=== PATIENT | female | born 2000 | race Caucasian/White ===

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

== ENCOUNTER 2019-05-25 19:22 | Emergency (ER) | payer MEDICAID, OTHER ==
[2019-05-25 19:49] VITALS: BP 102/60; PULSE 94
--- NOTE | 2019-05-25 20:09 | EDM.PDOC ---
ED HPI GENERAL MEDICAL PROBLEM - General Chief Complaint: General Stated Complaint: PREGANCY TEST Time Seen by Provider: 05/25/19 19:45 Source of Information: Reports: Patient, RN History Limitations: Reports: No Limitations - History of Present Illness INITIAL COMMENTS - FREE TEXT/NARRATIVE: ED with request for test. Has had two at home that were negative. LMP 04/08. States feeling tired and having cravings. 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 ED EXAM, GENERAL - Physical Exam Exam: See Below Exam Limited By: No Limitations General Appearance: Alert, No Apparent Distress Eye Exam: Bilateral Eye: EOMI Ears: Normal External Exam, Hearing Grossly Normal Nose: Normal Inspection Throat/Mouth: Normal Voice Head: Atraumatic, Normocephalic Neck: Full Range of Motion Respiratory/Chest: No Respiratory Distress Extremities: Normal Range of Motion Psychiatric: Normal Affect, Normal Mood Skin Exam: Warm, Dry, Intact, Normal Color Course - Vital Signs Last Recorded V/S: Last Vital Signs Temp 97.2 F 05/25/19 19:30 Pulse 94 05/25/19 19:30 Resp 16 05/25/19 19:30 BP 102/60 05/25/19 19:30 Pulse Ox 99 05/25/19 19:30 - Orders/Labs/Meds Labs: Laboratory Tests 05/25/19 Range/Units 19:37 Urine HCG, Qual Negative Departure - Departure Time of Disposition: 20:07 Disposition: Home, Self-Care 01 Condition: Good Clinical Impression: Anxiety about health, Negative test - Discharge Information *PRESCRIPTION DRUG MONITORING PROGRAM REVIEWED*: No *COPY OF PRESCRIPTION DRUG MONITORING REPORT IN PATIENT KIRTI: Not Applicable Instructions: Test Information Forms: ED Department Discharge Additional Instructions: Follow up in clinic Sepsis Event Note - Evaluation Sepsis Screening Result: No Definite Risk - Focused Exam Vital Signs: Vital Signs Temp Pulse Resp BP Pulse Ox 05/25/19 19:30 97.2 F 94 16 102/60 99 Date Exam was Performed: 05/26/19 Time Exam was Performed: 02:32
== END 2019-05-25 20:14 | disposition home or self-care (01) ==
LOC: DL.ED 19:22
DX: Z32.02 Encounter for pregnancy test, result negative (principal); F41.8 Other specified anxiety disorders; Z91.010 Allergy to peanuts
CPT/HCPCS: 81025; 99283

== ENCOUNTER 2019-07-04 16:44 | Emergency (ER) | payer OTHER ==
[2019-07-04 17:08] VITALS: BP 110/64; PULSE 89
--- NOTE | 2019-07-04 19:10 | EDM.PDOC ---
ED HPI GENERAL MEDICAL PROBLEM - General Source of Information: Reports: Patient History Limitations: Reports: No Limitations <IvanJagdish - Last Filed: 07/04/19 19:04> <Juana Gonzalez - Last Filed: 07/04/19 20:27> - General Chief Complaint: Head Injury Stated Complaint: HIT IN HEAD WITH A GLASS BOWL Time Seen by Provider: 07/04/19 19:04 - History of Present Illness INITIAL COMMENTS - FREE TEXT/NARRATIVE: got hit on head by heavy glass bowel, denies LOC, but was dazed at first, then started feeling nauseous dizzy not feeling like herself headache and vision blurry on-off. denies falling over but feels unsteady on-off. 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 REEL WORKER History: co pain to left pelvis and down left leg Psychiatric History: Reports: ADHD, Antisocial Behaviors, Emotional Problems, Mood Swings, Psych Hospitalization(s), Psychosis, Schizophrenia <IvanJagdish - Last Filed: 07/04/19 19:04> Social & Family History - Family History Family Medical History: Noncontributory - Tobacco Use Smoking Status *Q: Never Smoker Second Hand Smoke Exposure: No - Caffeine Use Caffeine Use: Reports: Coffee, Soda - Recreational Drug Use Recreational Drug Use: No - Living Situation & Occupation Living situation: Reports: Other Occupation: Student <IvanJagdish - Last Filed: 07/04/19 19:04> ED ROS GENERAL - Review of Systems Review Of Systems: Comprehensive ROS is negative, except as noted in HPI. <IvanJagdish - Last Filed: 07/04/19 19:04> ED EXAM, HEAD INJURY - Physical Exam Exam: See Below Exam Limited By: No Limitations General Appearance: Alert, WD/WN, Mild Distress, Other (discomfort) Head: Other (right forehead swollen). No: Wolff's Sign, Raccoon Eyes Eyes: Bilateral Eye: PERRL (pupils ER @ 4mm) Ears: Hearing Grossly Normal Throat/Mouth: Normal Voice, No Airway Compromise Neck: Non-Tender, Full Range of Motion Respiratory: No Respiratory Distress Cardiovascular: Regular Rate, Rhythm GI/Abdominal Exam: Soft, Non-Tender Neurologic: No Motor/Sensory Deficits, Alert, Normal Mood/Affect, Oriented x 3 Skin: Normal Color, Warm/Dry - Abbie Coma Score Best Eye Response ([place]bbie): (4) Open Spontaneously Best Verbal Response ([place]): (5) Oriented Best Motor Response ([place]): (6) Obeys Commands Abbie Total: 15 <Jagdish Love - Last Filed: 07/04/19 19:04> Course <Jadgish Love - Last Filed: 07/04/19 19:04> <Juana Gonzalez - Last Filed: 07/04/19 20:27> - Vital Signs Last Recorded V/S: Last Vital Signs Temp 98.0 F 07/04/19 17:02 Pulse 89 07/04/19 17:02 Resp 18 07/04/19 17:02 BP 110/64 07/04/19 17:02 Pulse Ox 99 07/04/19 17:02 - Orders/Labs/Meds Labs: Laboratory Tests 07/04/19 Range/Units 19:10 HCG, Qual Negative - Radiology Interpretation Free Text/Narrative:: Head CT wo contrast: FINDINGS: Brain: No evidence for acute transcortical infarct. No mass effect or midline shift. No extra-axial collection. No acute intracranial hemorrhage. Basal cisterns are patent. Ventricles: Absence of the septum pellucidum. Mild dilatation of the lateral ventricles without evidence of acute hydrocephalus. Bones/joints: Unremarkable. No acute fracture. Sinuses: Mucosal thickening involving the left maxillary sinus. Mastoid air cells: Visualized mastoid air cells are well aerated. Soft tissues: Unremarkable. IMPRESSION: No acute intracranial hemorrhage or mass effect. Thank you for allowing us to participate in the care of your patient. Dictated and Authenticated by: Steve Arreguin MD 07/04/2019 8:24 PM Central Time ([place] & [place]) See rad report (Juana Gonzalez) Departure <Jagdish Love - Last Filed: 07/04/19 19:04> - Departure Time of Disposition: 20:26 Condition: Fair - Discharge Information *PRESCRIPTION DRUG MONITORING PROGRAM REVIEWED*: No *COPY OF PRESCRIPTION DRUG MONITORING REPORT IN PATIENT KIRTI: No <Juana Gonzalez - Last Filed: 07/04/19 20:27> - Departure Disposition: Home, Self-Care 01 Clinical Impression: Concussion injury of brain - Discharge Information Instructions: Head Injury, Adult, [id number], Concussion, Adult, [id number] , Post-Concussion Syndrome, [id number] Forms: ED Department Discharge Additional Instructions: Rest in quiet, dark room Decrease stimulus such as TV, looking at screens such as phone, ipad, etc. May use Tylenol and/or Ibuprofen as directed for pain Follow up with your primary care provider next week if symptoms are ongoing Sepsis Event Note - Evaluation Sepsis Screening Result: No Definite Risk - Focused Exam Date Exam was Performed: 07/04/19 Time Exam was Performed: 19:04 <Jagdish Love - Last Filed: 07/04/19 19:04> - Focused Exam Date Exam was Performed: 07/04/19 Time Exam was Performed: 20:25 <Juana Gonzalez - Last Filed: 07/04/19 20:27> - Focused Exam Vital Signs: Vital Signs Temp Pulse Resp BP Pulse Ox 07/04/19 17:02 98.0 F 89 18 110/64 99
== END 2019-07-04 20:33 | disposition home or self-care (01) ==
LOC: DL.ED 16:44
DX: S06.0X9A Concussion with loss of consciousness of unspecified duration, initial encounter (principal); Z91.010 Allergy to peanuts; W22.8XXA Striking against or struck by other objects, initial encounter
CPT/HCPCS: 36415; 70450; 84703; 99284-25

== ENCOUNTER 2020-01-11 23:31 | Emergency (ER) | payer OTHER ==
[2020-01-11 23:38] VITALS: BP 107/79; PULSE 93
--- NOTE | 2020-01-11 23:52 | EDM.PDOC ---
ED HPI GENERAL MEDICAL PROBLEM - General Chief Complaint: Abdominal Pain Stated Complaint: ABD PAIN Time Seen by Provider: 01/11/20 23:51 Source of Information: Reports: Patient, RN History Limitations: Reports: No Limitations - History of Present Illness INITIAL COMMENTS - FREE TEXT/NARRATIVE: ED with c/o pelvic pain x 1- 1 1/2 months almost constant at times worsens with sharp stabbing sensations states since arrival pain now gone. Thinks part of pain related to stress. Just thought she should be checked out tonight. States has tried to get in to clinic but has not scheduled appointment. Does not take anything for pain. Denies nausea or vomiting. No change in bowels. Notes some stomach upset after eating Subwa today but that also resolved. 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 ED EXAM, GI/ABD - Physical Exam Exam: See Below Exam Limited By: No Limitations General Appearance: Alert, No Apparent Distress Eyes: Bilateral: EOMI Ears: Normal External Exam, Normal TMs Nose: Nasal Deformity Throat/Mouth: Normal Inspection Head: Atraumatic, Normocephalic Neck: Normal Inspection Respiratory/Chest: No Respiratory Distress, Lungs Clear, Normal Breath Sounds Cardiovascular: Normal Peripheral Pulses, Regular Rate, Rhythm GI/Abdominal Exam: Normal Bowel Sounds, Soft, Non-Tender Extremities: Normal Range of Motion Neurological: Alert, Oriented Psychiatric: Normal Mood Skin Exam: Warm, Dry, Intact, Normal Color Course - Vital Signs Last Recorded V/S: Last Vital Signs Temp 98.2 F 01/11/20 23:37 Pulse 93 01/11/20 23:37 Resp 18 01/11/20 23:37 BP 107/79 01/11/20 23:37 Pulse Ox 99 01/11/20 23:37 - Orders/Labs/Meds Orders: Active Orders 24 hr Category Date Time Status CULTURE URINE [RM] Stat Lab 01/11/20 23:50 Received Nitrofurantoin [place]/Macrocryst [Macrobid] Med 01/12/20 00:24 Once 100 mg PO ONETIME ONE Labs: Laboratory Tests 01/11/20 01/11/20 01/11/20 Range/Units 23:45 23:45 23:50 WBC 9.9 (5.0-10.0) 10^3/uL RBC 4.10 L (4.2-5.4) 10^6/uL Hgb 12.7 D (12.0-16.0) g/dL Hct 37.8 (37.0-47.0) % MCV 92.2 (80-100) fL MCH 31.0 (27.0-34.0) pg MCHC 33.6 (33.0-35.0) g/dL Plt Count 299 (150-450) 10^3/uL Neut % (Auto) 49.4 (42.2-75.2) % Lymph % (Auto) 38.9 (20.5-50.1) % [place] % (Auto) 9.1 H (2-8) % Eos % (Auto) 2.1 (1.0-3.0) % Baso % (Auto) 0.5 (0.0-1.0) % Sodium 139 (136-145) mmol/L Potassium 3.6 (3.5-5.1) mmol/L Chloride 103 (98-107) mmol/L Carbon Dioxide 27 (21-32) mmol/L Anion Gap 12.6 (7-13) mEq/L BUN 15 (7-18) mg/dL Creatinine 0.66 (0.55-1.02) mg/dL Est Cr Clr Drug Dosing 127.28 mL/min Estimated GFR (MDRD) > 60 BUN/Creatinine Ratio 22.7 (No establ ref range) Glucose 89 (74-99) mg/dL Calcium 8.8 (8.5-10.1) mg/dL Total Bilirubin 0.2 (0.2-1.0) mg/dL AST 16 (15-37) U/L ALT 20 (14-59) U/L Alkaline Phosphatase 61 (46-116) U/L Total Protein 6.8 (6.4-8.2) g/dL Albumin 3.6 (3.4-5.0) g/dL Globulin 3.2 Albumin/Globulin Ratio 1.1 Urine Color Yellow (YELLOW) Urine Appearance Slightly cloudy (CLEAR) Urine pH 6.0 (5.0-9.0) Ur Specific [place] 1.025 (1.005-1.030) Urine Protein Negative (NEGATIVE) Urine Glucose (UA) Negative (NEGATIVE) Urine Ketones Negative (NEGATIVE) Urine Occult Blood Trace-intact H (NEGATIVE) Urine Nitrite Negative (NEGATIVE) Urine Bilirubin Negative (NEGATIVE) Urine Urobilinogen 0.2 (0.2-1.0) mg/dL Ur Leukocyte Esterase Small H (NEGATIVE) Urine RBC 0-5 /HPF Urine WBC 10-20 H (0-5/HPF) /HPF Ur Epithelial Cells Few (NOT SEEN) /HPF Amorphous Sediment Few (NOT SEEN) /HPF Urine Bacteria Rare (0-FEW/HPF) /HPF Urine Mucus Few H (NOT SEEN) /LPF Urine HCG, Qual 01/11/20 Range/Units 23:50 WBC (5.0-10.0) 10^3/uL RBC (4.2-5.4) 10^6/uL Hgb (12.0-16.0) g/dL Hct (37.0-47.0) % MCV (80-100) fL MCH (27.0-34.0) pg MCHC (33.0-35.0) g/dL Plt Count (150-450) 10^3/uL Neut % (Auto) (42.2-75.2) % Lymph % (Auto) (20.5-50.1) % [place] % (Auto) (2-8) % Eos % (Auto) (1.0-3.0) % Baso % (Auto) (0.0-1.0) % Sodium (136-145) mmol/L Potassium (3.5-5.1) mmol/L Chloride (98-107) mmol/L Carbon Dioxide (21-32) mmol/L Anion Gap (7-13) mEq/L BUN (7-18) mg/dL Creatinine (0.55-1.02) mg/dL Est Cr Clr Drug Dosing mL/min Estimated GFR (MDRD) BUN/Creatinine Ratio (No establ ref range) Glucose (74-99) mg/dL Calcium (8.5-10.1) mg/dL Total Bilirubin (0.2-1.0) mg/dL AST (15-37) U/L ALT (14-59) U/L Alkaline Phosphatase (46-116) U/L Total Protein (6.4-8.2) g/dL Albumin (3.4-5.0) g/dL Globulin Albumin/Globulin Ratio Urine Color (YELLOW) Urine Appearance (CLEAR) Urine pH (5.0-9.0) Ur Specific [place] (1.005-1.030) Urine Protein (NEGATIVE) Urine Glucose (UA) (NEGATIVE) Urine Ketones (NEGATIVE) Urine Occult Blood (NEGATIVE) Urine Nitrite (NEGATIVE) Urine Bilirubin (NEGATIVE) Urine Urobilinogen (0.2-1.0) mg/dL Ur Leukocyte Esterase (NEGATIVE) Urine RBC /HPF Urine WBC (0-5/HPF) /HPF Ur Epithelial Cells (NOT SEEN) /HPF Amorphous Sediment (NOT SEEN) /HPF Urine Bacteria (0-FEW/HPF) /HPF Urine Mucus (NOT SEEN) /LPF Urine HCG, Qual Negative Departure - Departure Time of Disposition: 00:24 Disposition: Home, Self-Care 01 Condition: Good Clinical Impression: UTI (urinary tract infection) Qualifiers: Urinary tract infection type: acute cystitis Hematuria presence: without hematuria Qualified Code(s): N30.00 - Acute cystitis without hematuria - Discharge Information *PRESCRIPTION DRUG MONITORING PROGRAM REVIEWED*: No *COPY OF PRESCRIPTION DRUG MONITORING REPORT IN PATIENT KIRTI: No Instructions: Urinary Tract Infection, Adult, [id number] Forms: ED Department Discharge Additional Instructions: Macrobid 100mg one twice daily for one wee increase fluids increase frequency of voiding clinic follow up and schedule pelvic ultrasound Sepsis Event Note (ED) - Evaluation Sepsis Screening Result: No Definite Risk - Focused Exam Vital Signs: Vital Signs Temp Pulse Resp BP Pulse Ox 01/11/20 23:37 98.2 F 93 18 107/79 99 - My Orders Last 24 Hours: My Active Orders 01/11/20 23:50 CULTURE URINE [RM] Stat 01/12/20 00:24 Nitrofurantoin [place]/Macrocryst [Macrobid] 100 mg PO ONETIME ONE - Assessment/Plan Last 24 Hours: My Active Orders 01/11/20 23:50 CULTURE URINE [RM] Stat 01/12/20 00:24 Nitrofurantoin [place]/Macrocryst [Macrobid] 100 mg PO ONETIME ONE
[2020-01-12 00:14] LABS: ANION GAP 12.6 mEq/L (7-13); CHLORIDE,CL 103 mmol/L (98-107); SODIUM,NA 139 mmol/L (136-145)
[2020-01-12] MEDS ORDERED: Nitrofurantoin Monohydrate/Macrocrystalline 100 MG Cap PO ONE (00:24)
== END 2020-01-12 00:30 | disposition home or self-care (01) ==
LOC: DL.ED 23:31
DX: N30.00 Acute cystitis without hematuria (principal); Z91.010 Allergy to peanuts
CPT/HCPCS: 36415; 80053; 81001; 81025; 85025; 87086; 99284; A9270-GY

== ENCOUNTER 2020-01-23 19:53 | Emergency (ER) | payer OTHER ==
--- NOTE | 2020-01-23 20:11 | EDM.PDOC ---
ED HPI GENERAL MEDICAL PROBLEM - General Chief Complaint: Genitourinary Problem Stated Complaint: SEVERE PELVIC PAINS Time Seen by Provider: 01/23/20 20:07 Source of Information: Reports: Patient History Limitations: Reports: No Limitations - History of Present Illness INITIAL COMMENTS - FREE TEXT/NARRATIVE: states been having this abd pain past 2 months now. seen many clinics and docs but never any better. nobody has scanned her for it. 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 ED EXAM, GI/ABD - Physical Exam Exam: See Below Exam Limited By: No Limitations General Appearance: Alert, WD/WN, Mild Distress, Other (discomfort). No: Active Emesis Ears: Hearing Grossly Normal Throat/Mouth: Normal Voice, No Airway Compromise Head: Atraumatic Neck: Non-Tender, Full Range of Motion Respiratory/Chest: No Respiratory Distress Cardiovascular: Regular Rate, Rhythm GI/Abdominal Exam: Tender. No: Distended, Guarding, Rigid, Rebound (Female) Exam: Deferred Rectal (Female) Exam: Deferred Neurological: Alert, Oriented, Normal Cognition, Normal Gait, No Motor/Sensory Deficits Psychiatric: Flat Affect Skin Exam: Warm, Dry, Normal Color Lymphatic: No Adenopathy Course - Vital Signs Last Recorded V/S: Last Vital Signs Temp 36.4 C 01/23/20 20:02 Pulse 89 01/23/20 20:02 Resp 18 01/23/20 20:02 BP 118/78 01/23/20 20:02 Pulse Ox 100 01/23/20 20:02 - Orders/Labs/Meds Orders: Active Orders 24 hr Category Date Time Status CHLAMYDIA AND GONORRHEA BY TMA Stat Lab 01/23/20 20:10 Received CULTURE URINE [RM] Stat Lab 01/23/20 20:10 Received Labs: Laboratory Tests 01/23/20 01/23/20 01/23/20 Range/Units 20:08 20:08 20:10 WBC 9.9 (5.0-10.0) 10^3/uL RBC 3.89 L (4.2-5.4) 10^6/uL Hgb 12.1 (12.0-16.0) g/dL Hct 36.2 L (37.0-47.0) % MCV 93.1 (80-100) fL MCH 31.1 (27.0-34.0) pg MCHC 33.4 (33.0-35.0) g/dL Plt Count 283 (150-450) 10^3/uL Neut % (Auto) 49.7 (42.2-75.2) % Lymph % (Auto) 39.1 (20.5-50.1) % [place] % (Auto) 8.1 H (2-8) % Eos % (Auto) 2.7 (1.0-3.0) % Baso % (Auto) 0.4 (0.0-1.0) % Sodium 139 (136-145) mmol/L Potassium 3.6 (3.5-5.1) mmol/L Chloride 104 (98-107) mmol/L Carbon Dioxide 25 (21-32) mmol/L Anion Gap 13.6 H (7-13) mEq/L BUN 20 H (7-18) mg/dL Creatinine 0.78 (0.55-1.02) mg/dL Est Cr Clr Drug Dosing 105.61 mL/min Estimated GFR (MDRD) > 60 BUN/Creatinine Ratio 25.6 (No establ ref range) Glucose 82 (74-99) mg/dL Calcium 8.4 L (8.5-10.1) mg/dL Total Bilirubin 0.2 (0.2-1.0) mg/dL AST 15 (15-37) U/L ALT 23 (14-59) U/L Alkaline Phosphatase 61 (46-116) U/L Total Protein 7.0 (6.4-8.2) g/dL Albumin 3.6 (3.4-5.0) g/dL Globulin 3.4 Albumin/Globulin Ratio 1.1 Urine Color Yellow (YELLOW) Urine Appearance Slightly cloudy (CLEAR) Urine pH 7.0 (5.0-9.0) Ur Specific [place] 1.025 (1.005-1.030) Urine Protein Negative (NEGATIVE) Urine Glucose (UA) Negative (NEGATIVE) Urine Ketones Negative (NEGATIVE) Urine Occult Blood Negative (NEGATIVE) Urine Nitrite Negative (NEGATIVE) Urine Bilirubin Negative (NEGATIVE) Urine Urobilinogen 0.2 (0.2-1.0) mg/dL Ur Leukocyte Esterase Trace H (NEGATIVE) Urine RBC Not seen /HPF Urine WBC 5-10 H (0-5/HPF) /HPF Ur Epithelial Cells Few (NOT SEEN) /HPF Amorphous Sediment Few (NOT SEEN) /HPF Urine Bacteria Few (0-FEW/HPF) /HPF Urine Mucus Rare (NOT SEEN) /LPF Urine HCG, Qual Urine Opiates Screen (NEGATIVE) Ur Oxycodone Screen (NEGATIVE) Urine Methadone Screen (NEGATIVE) Ur Barbiturates Screen (NEGATIVE) U Tricyclic Antidepress (NEGATIVE) Ur Phencyclidine Scrn (NEGATIVE) Ur Amphetamine Screen (NEGATIVE) U Methamphetamines Scrn (NEGATIVE) Urine MDMA Screen (NEGATIVE) U Benzodiazepines Scrn (NEGATIVE) Urine Cocaine Screen (NEGATIVE) U Marijuana (THC) Screen (NEGATIVE) 01/23/20 01/23/20 Range/Units 20:10 20:10 WBC (5.0-10.0) 10^3/uL RBC (4.2-5.4) 10^6/uL Hgb (12.0-16.0) g/dL Hct (37.0-47.0) % MCV (80-100) fL MCH (27.0-34.0) pg MCHC (33.0-35.0) g/dL Plt Count (150-450) 10^3/uL Neut % (Auto) (42.2-75.2) % Lymph % (Auto) (20.5-50.1) % [place] % (Auto) (2-8) % Eos % (Auto) (1.0-3.0) % Baso % (Auto) (0.0-1.0) % Sodium (136-145) mmol/L Potassium (3.5-5.1) mmol/L Chloride (98-107) mmol/L Carbon Dioxide (21-32) mmol/L Anion Gap (7-13) mEq/L BUN (7-18) mg/dL Creatinine (0.55-1.02) mg/dL Est Cr Clr Drug Dosing mL/min Estimated GFR (MDRD) BUN/Creatinine Ratio (No establ ref range) Glucose (74-99) mg/dL Calcium (8.5-10.1) mg/dL Total Bilirubin (0.2-1.0) mg/dL AST (15-37) U/L ALT (14-59) U/L Alkaline Phosphatase (46-116) U/L Total Protein (6.4-8.2) g/dL Albumin (3.4-5.0) g/dL Globulin Albumin/Globulin Ratio Urine Color (YELLOW) Urine Appearance (CLEAR) Urine pH (5.0-9.0) Ur Specific [place] (1.005-1.030) Urine Protein (NEGATIVE) Urine Glucose (UA) (NEGATIVE) Urine Ketones (NEGATIVE) Urine Occult Blood (NEGATIVE) Urine Nitrite (NEGATIVE) Urine Bilirubin (NEGATIVE) Urine Urobilinogen (0.2-1.0) mg/dL Ur Leukocyte Esterase (NEGATIVE) Urine RBC /HPF Urine WBC (0-5/HPF) /HPF Ur Epithelial Cells (NOT SEEN) /HPF Amorphous Sediment (NOT SEEN) /HPF Urine Bacteria (0-FEW/HPF) /HPF Urine Mucus (NOT SEEN) /LPF Urine HCG, Qual Negative Urine Opiates Screen Negative (NEGATIVE) Ur Oxycodone Screen Negative (NEGATIVE) Urine Methadone Screen Negative (NEGATIVE) Ur Barbiturates Screen Negative (NEGATIVE) U Tricyclic Antidepress Negative (NEGATIVE) Ur Phencyclidine Scrn Negative (NEGATIVE) Ur Amphetamine Screen Negative (NEGATIVE) U Methamphetamines Scrn Negative (NEGATIVE) Urine MDMA Screen Negative (NEGATIVE) U Benzodiazepines Scrn Negative (NEGATIVE) Urine Cocaine Screen Negative (NEGATIVE) U Marijuana (THC) Screen Negative (NEGATIVE) Meds: Medications Discontinued Medications Generic Name Dose Route Start Last Admin Trade Name Freq PRN Reason Stop Dose Admin Iopamidol 100 ml 01/23/20 20:44 01/23/20 20:49 Isovue-300 (61%) IVPUSH 01/23/20 20:45 100 ml ONETIME ONE Administration - Re-Assessments/Exams Free Text/Narrative Re-Assessment/Exam: 01/23/20 22:10 results discussed with pt who is feeling better now and wants to go home. Departure - Departure Time of Disposition: 22:10 Disposition: Home, Self-Care 01 Condition: Good Clinical Impression: Abdominal discomfort, generalized - Discharge Information Forms: ED Department Discharge Additional Instructions: 1) resst 2) follow up at clinic Sepsis Event Note (ED) - Evaluation Sepsis Screening Result: No Definite Risk - Focused Exam Vital Signs: Vital Signs Temp Pulse Resp BP Pulse Ox 01/23/20 20:02 36.4 C 89 18 118/78 100 - My Orders Last 24 Hours: My Active Orders 01/23/20 20:10 CHLAMYDIA AND GONORRHEA BY TMA Stat CULTURE URINE [RM] Stat - Assessment/Plan Last 24 Hours: My Active Orders 01/23/20 20:10 CHLAMYDIA AND GONORRHEA BY TMA Stat CULTURE URINE [RM] Stat
[2020-01-23] MEDS ORDERED: Iopamidol 612 MG/ML 100 ML Bottle IVPUSH ONE (20:44)
[2020-01-23 20:45] LABS: ANION GAP 13.6 mEq/L (7-13); CHLORIDE,CL 104 mmol/L (98-107); SODIUM,NA 139 mmol/L (136-145)
--- NOTE | 2020-01-23 21:43 | CT ---
PROCEDURE INFORMATION: Exam: CT Abdomen And Pelvis With Contrast Exam date and time: 01/23/2020 8:53 PM Age: 19 years old Clinical indication: Other: Low abd pain 2 months TECHNIQUE: Imaging protocol: Computed tomography of the abdomen and pelvis with intravenous contrast. Radiation optimization: All CT scans at this facility use at least one of these dose optimization techniques: automated exposure control; mA and/or kV adjustment per patient size (includes targeted exams where dose is matched to clinical indication); or iterative reconstruction. Contrast material: [id number]; Contrast volume: 75 ml; Contrast route: INTRAVENOUS (IV); COMPARISON: No relevant prior studies available. FINDINGS: Liver: Normal in architecture. No suspicious hepatic mass. Gallbladder and bile ducts: Gallbladder is contracted. No stones are seen. Pancreas: Normal parenchymal bulk and the gland is sharply marginated. No local inflammation and ductal dilatation. No organized fluid collection, mass, or calcification. Spleen: The spleen is normal in size. No splenic mass or abnormal fluid collection. Adrenals: There are no suspicious adrenal masses. Kidneys and ureters: Both kidneys are normal in parenchymal bulk. No hydronephrosis, stone, or solid mass. Stomach and bowel: No significant abnormalities of the stomach. There are no dilated or thickened small bowel loops. Gas and stool are seen in the colon to the rectum. No mass. Appendix: The appendix is seen. It is normal. Intraperitoneal space: No pneumoperitoneum, ascites, mass or stranding of fat. Vasculature: No aneurysm. Lymph nodes: No enlarged lymph nodes. Urinary bladder: Unremarkable as visualized. Reproductive: The uterus and ovaries are within normal limits. There are no adenexal masses. Bones/joints: Age appropriate. No acute fracture. No dislocation. There are no suspicious lytic or osteosclerotic lesions. Soft tissues: No suspicious soft tissue masses, soft tissue gas of significance, or hernia. IMPRESSION: No sign of acute intra-abdominal pathology.
[2020-01-23 22:11] VITALS: BP 125/79; PULSE 76
== END 2020-01-23 22:17 | disposition home or self-care (01) ==
LOC: DL.ED 19:53
DX: R10.84 Generalized abdominal pain (principal); F20.9 Schizophrenia, unspecified; Z91.010 Allergy to peanuts
CPT/HCPCS: 36415; 74177; 80053; 80305; 81001; 81025; 85025; 87086; 87491; 87591; 99284; Q9967; 99283

== ENCOUNTER 2020-06-18 15:31 | Emergency (ER) | payer OTHER ==
[2020-06-18 15:54] VITALS: BP 108/62; PULSE 84
[2020-06-18 16:33] LABS: AMPHETAMINES,URINE NEGATIVE (NEGATIVE); BARBITURATES,URINE NEGATIVE (NEGATIVE); BENZODIAZEPINE,URINE NEGATIVE (NEGATIVE); MDMA (ECSTASY), URINE NEGATIVE (NEGATIVE); METHADONE,URINE NEGATIVE (NEGATIVE); METHAMPHETAMINES,URINE NEGATIVE (NEGATIVE); OPIATES,URINE NEGATIVE (NEGATIVE); OXYCODONE,URINE NEGATIVE (NEGATIVE); PHENCYCLIDINE,URINE NEGATIVE (NEGATIVE); TCA,URINE NEGATIVE (NEGATIVE)
--- NOTE | 2020-06-18 17:00 | US ---
PROCEDURE INFORMATION: Exam: US , Limited Exam date and time: 06/18/2020 4:12 PM Age: 20 years old Clinical indication: Lmp or gestational age (in weeks): ? 4-5weeks; Antepartum complications; Bleeding; ; Additional info: Spotting ? 4-5 weeks TECHNIQUE: Imaging protocol: Real-time ultrasound of the maternal uterus with image documentation. Exam focused on the clinical indication. COMPARISON: No relevant prior studies available. FINDINGS: Gestation: Intrauterine gestational sac is appreciated. A pole is not seen. BIOMETRY: Mean sac diameter: Mean sac diameter is 0.66 cm (5 weeks 2 days). MATERNAL: Uterus: Uterus is anteverted and appears unremarkable. Right adnexa: The right ovary is normal and measures 2.9 cm x 2.4 cm x 1.7 cm. Normal right ovarian vascularity. Left adnexa: The left ovary is normal and measures 3.2 cm by 2.2 cm x 1.5 cm. There is a 1.5 cm cyst in the left ovary which most probably represents an involuting corpus luteum or involuting hemorrhagic cyst. No follow-up is recommended. Normal left ovarian vascularity. Intraperitoneal space: Trace free fluid in the cul-de-sac. IMPRESSION: Intrauterine gestational sac without a pole identified. Ultrasound dates are 5 weeks 2 days, not correlating with LMP (8 weeks 1 day). Differential diagnosis would include early or failed . Close follow-up with beta HCG and ultrasound is recommended.
--- NOTE | 2020-06-18 17:01 | US ---
PROCEDURE INFORMATION: Exam: US , Transvaginal Exam date and time: 06/18/2020 4:12 PM Age: 20 years old Clinical indication: Lmp or gestational age (in weeks): ? 4-5 weeks; Antepartum complications; Bleeding; ; Additional info: Spotting (believes 4-5 weeks into ) TECHNIQUE: Imaging protocol: Real-time transvaginal obstetrical ultrasound of the maternal pelvis and a first trimester with image documentation. Transvaginal imaging was used for better evaluation of the fetus, adnexa, and/or cervix. COMPARISON: No relevant prior studies available. FINDINGS: Gestation: Intrauterine gestational sac is appreciated. A pole is not seen. BIOMETRY: Mean sac diameter: Mean sac diameter is 0.66 cm (5 weeks 2 days). MATERNAL: Uterus: Uterus is anteverted and appears unremarkable. Right adnexa: The right ovary is normal and measures 2.9 cm x 2.4 cm x 1.7 cm. Normal right ovarian vascularity. Left adnexa: The left ovary is normal and measures 3.2 cm by 2.2 cm x 1.5 cm. There is a 1.5 cm cyst in the left ovary which most probably represents an involuting corpus luteum or involuting hemorrhagic cyst. No follow-up is recommended. Normal left ovarian vascularity. Intraperitoneal space: Trace free fluid in the cul-de-sac. IMPRESSION: Intrauterine gestational sac without a pole identified. Ultrasound dates are 5 weeks 2 days, not correlating with LMP (8 weeks 1 day). Differential diagnosis would include early or failed . Close follow-up with beta HCG and ultrasound is recommended.
--- NOTE | 2020-06-18 17:03 | EDM.PDOC ---
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 The patient reports she has taken numerous tests demonstrating that she was . The patient reports she started to notice some spotting last night and has used 2 pads today. Onset Date: 06/17/20 Duration: Constant Location: Reports: Other Quality: Reports: Other Severity: Mild Improves with: Reports: None Worsens with: Reports: None Context: Reports: Other Associated Symptoms: Reports: No Other Symptoms - Related Data Allergies Allergy/AdvReac Type Severity Reaction Status Date / Time peanut Allergy Anaphylactic Verified 06/18/20 15:54 Shock Past Medical History - Past Health History Medical/Surgical History: Denies Medical/Surgical History HEENT History: Reports: Hard of Hearing, Impaired Vision Cardiovascular History: Reports: Heart Murmur TAP OUT OPERATOR History: Reports: , Other (See Below) Other TAP OUT OPERATOR History: co pain to left pelvis and down left leg Psychiatric History: Reports: ADHD, Antisocial Behaviors, Bipolar, Emotional Problems, Mood Swings, Psych Hospitalization(s), Psychosis, Schizophrenia Social & Family History - Family History Family Medical History: No Pertinent Family History - Tobacco Use Tobacco Use Status *Q: Current Every Day Tobacco User Years of Tobacco use: 1 Packs/Tins Daily: 1 Used Tobacco, but Quit: Yes Month/Year Tobacco Last Used: 04/2019 - Caffeine Use Caffeine Use: Reports: None - Recreational Drug Use Recreational Drug Use: No - Living Situation & Occupation Living situation: Reports: Other Occupation: Student ED ROS GENERAL - Review of Systems Review Of Systems: Comprehensive ROS is negative, except as noted in HPI. ED EXAM - Physical Exam Exam: See Below Exam Limited By: No Limitations General Appearance: Alert, WD/WN, Anxious, Mild Distress Eye Exam: Bilateral Eye: EOMI, Normal Inspection, PERRL Ears: Normal External Exam, Normal Canal, Hearing Grossly Normal, Normal TMs Nose: Normal Inspection, Normal Mucosa, No Blood Throat/Mouth: Normal Inspection, Normal Lips, Normal Teeth, Normal Gums, Normal Oropharynx, Normal Voice, No Airway Compromise Head: Atraumatic, Normocephalic Neck: Normal Inspection, Supple, Non-Tender, Full Range of Motion Respiratory/Chest: No Respiratory Distress, Lungs Clear, Normal Breath Sounds, No Accessory Muscle Use, Chest Non-Tender Cardiovascular: Normal Peripheral Pulses, Regular Rate, Rhythm, No Edema, No Gallop, No JVD, No Murmur, No Rub GI/Abdominal Exam: Normal Bowel Sounds, Soft, Non-Tender, No Organomegaly, No Distention, No Abnormal Bruit, No Mass, Pelvis Stable Rectal Exam: Deferred Back Exam: Normal Inspection Extremities: Normal Inspection, Normal Range of Motion, Non-Tender, Normal Capillary Refill, No Pedal Edema Neurological: Alert, Oriented, CN II-XII Intact, Normal Cognition, Normal Gait, Normal Reflexes, No Motor/Sensory Deficits Psychiatric: Normal Affect, Normal Mood Skin Exam: Warm, Dry, Intact, Normal Color, No Rash Lymphatic: No Adenopathy Course - Vital Signs Last Recorded V/S: Last Vital Signs Temp 36.8 C 06/18/20 15:49 Pulse 84 06/18/20 15:49 Resp 14 06/18/20 15:49 BP 108/62 06/18/20 15:49 Pulse Ox 99 06/18/20 15:49 - Orders/Labs/Meds Labs: Laboratory Tests 06/18/20 06/18/20 06/18/20 Range/Units 15:37 15:37 15:37 WBC (5.0-10.0) 10^3/uL RBC (4.2-5.4) 10^6/uL Hgb (12.0-16.0) g/dL Hct (37.0-47.0) % MCV (80-100) fL MCH (27.0-34.0) pg MCHC (33.0-35.0) g/dL Plt Count (150-450) 10^3/uL Neut % (Auto) (42.2-75.2) % Lymph % (Auto) (20.5-50.1) % Page % (Auto) (2-8) % Eos % (Auto) (1.0-3.0) % Baso % (Auto) (0.0-1.0) % Sodium (136-145) mmol/L Potassium (3.5-5.1) mmol/L Chloride (98-107) mmol/L Carbon Dioxide (21-32) mmol/L Anion Gap (7-13) mEq/L BUN (7-18) mg/dL Creatinine (0.55-1.02) mg/dL Est Cr Clr Drug Dosing mL/min Estimated GFR (MDRD) BUN/Creatinine Ratio (No establ ref range) Glucose (74-99) mg/dL Calcium (8.5-10.1) mg/dL Total Bilirubin (0.2-1.0) mg/dL AST (15-37) U/L ALT (14-59) U/L Alkaline Phosphatase (46-116) U/L Total Protein (6.4-8.2) g/dL Albumin (3.4-5.0) g/dL Globulin Albumin/Globulin Ratio HCG, Quant (0-6) mIU/mL Urine Color Yellow (YELLOW) Urine Appearance Cloudy (CLEAR) Urine pH 7.0 (5.0-9.0) Ur Specific [place] >= 1.030 (1.005-1.030) Urine Protein Negative (NEGATIVE) Urine Glucose (UA) Negative (NEGATIVE) Urine Ketones Negative (NEGATIVE) Urine Occult Blood Large H (NEGATIVE) Urine Nitrite Negative (NEGATIVE) Urine Bilirubin Negative (NEGATIVE) Urine Urobilinogen 0.2 (0.2-1.0) mg/dL Ur Leukocyte Esterase Negative (NEGATIVE) Urine RBC 0-5 /HPF Urine WBC 0-5 (0-5/HPF) /HPF Ur Epithelial Cells Few (NOT SEEN) /HPF Amorphous Sediment Many H (NOT SEEN) /HPF Urine Bacteria Few (0-FEW/HPF) /HPF Urine Mucus Few H (NOT SEEN) /LPF Urine HCG, Qual Positive Urine Opiates Screen Negative (NEGATIVE) Ur Oxycodone Screen Negative (NEGATIVE) Urine Methadone Screen Negative (NEGATIVE) Ur Barbiturates Screen Negative (NEGATIVE) U Tricyclic Antidepress Negative (NEGATIVE) Ur Phencyclidine Scrn Negative (NEGATIVE) Ur Amphetamine Screen Negative (NEGATIVE) U Methamphetamines Scrn Negative (NEGATIVE) Urine MDMA Screen Negative (NEGATIVE) U Benzodiazepines Scrn Negative (NEGATIVE) Urine Cocaine Screen Negative (NEGATIVE) U Marijuana (THC) Screen Negative (NEGATIVE) 06/18/20 06/18/20 06/18/20 Range/Units 16:52 16:52 16:52 WBC 7.5 (5.0-10.0) 10^3/uL RBC 3.69 L (4.2-5.4) 10^6/uL Hgb 11.4 L (12.0-16.0) g/dL Hct 34.2 L (37.0-47.0) % MCV 92.7 (80-100) fL MCH 30.9 (27.0-34.0) pg MCHC 33.3 (33.0-35.0) g/dL Plt Count 256 (150-450) 10^3/uL Neut % (Auto) 49.7 (42.2-75.2) % Lymph % (Auto) 36.7 (20.5-50.1) % [place] % (Auto) 11.7 H (2-8) % Eos % (Auto) 1.5 (1.0-3.0) % Baso % (Auto) 0.4 (0.0-1.0) % Sodium 140 (136-145) mmol/L Potassium 3.8 (3.5-5.1) mmol/L Chloride 104 (98-107) mmol/L Carbon Dioxide 26 (21-32) mmol/L Anion Gap 13.8 H (7-13) mEq/L BUN 16 (7-18) mg/dL Creatinine 0.60 (0.55-1.02) mg/dL Est Cr Clr Drug Dosing 133.46 mL/min Estimated GFR (MDRD) > 60 BUN/Creatinine Ratio 26.7 (No establ ref range) Glucose 92 (74-99) mg/dL Calcium 8.7 (8.5-10.1) mg/dL Total Bilirubin 0.2 (0.2-1.0) mg/dL AST 11 L (15-37) U/L ALT 18 (14-59) U/L Alkaline Phosphatase 51 (46-116) U/L Total Protein 6.3 L (6.4-8.2) g/dL Albumin 3.3 L (3.4-5.0) g/dL Globulin 3.0 Albumin/Globulin Ratio 1.10 HCG, Quant 905 H (0-6) mIU/mL Urine Color (YELLOW) Urine Appearance (CLEAR) Urine pH (5.0-9.0) Ur Specific [place] (1.005-1.030) Urine Protein (NEGATIVE) Urine Glucose (UA) (NEGATIVE) Urine Ketones (NEGATIVE) Urine Occult Blood (NEGATIVE) Urine Nitrite (NEGATIVE) Urine Bilirubin (NEGATIVE) Urine Urobilinogen (0.2-1.0) mg/dL Ur Leukocyte Esterase (NEGATIVE) Urine RBC /HPF Urine WBC (0-5/HPF) /HPF Ur Epithelial Cells (NOT SEEN) /HPF Amorphous Sediment (NOT SEEN) /HPF Urine Bacteria (0-FEW/HPF) /HPF Urine Mucus (NOT SEEN) /LPF Urine HCG, Qual Urine Opiates Screen (NEGATIVE) Ur Oxycodone Screen (NEGATIVE) Urine Methadone Screen (NEGATIVE) Ur Barbiturates Screen (NEGATIVE) U Tricyclic Antidepress (NEGATIVE) Ur Phencyclidine Scrn (NEGATIVE) Ur Amphetamine Screen (NEGATIVE) U Methamphetamines Scrn (NEGATIVE) Urine MDMA Screen (NEGATIVE) U Benzodiazepines Scrn (NEGATIVE) Urine Cocaine Screen (NEGATIVE) U Marijuana (THC) Screen (NEGATIVE) Departure - Departure Time of Disposition: 17:52 Disposition: Home, Self-Care 01 Condition: Fair Clinical Impression: Incomplete miscarriage - Discharge Information *PRESCRIPTION DRUG MONITORING PROGRAM REVIEWED*: Not Applicable *COPY OF PRESCRIPTION DRUG MONITORING REPORT IN PATIENT KIRTI: Not Applicable Instructions: Miscarriage, [id number] Forms: ED Department Discharge Care Plan Goals: The patient was advised of the examination, lab and ultrasound results during the visit. The patient was encouraged to follow-up with her primary care facility for repeat HCG levels and repeat ultrasound. If the patient has any additional symptoms or concerns, the patient should either return to the emergency department or visit her primary care facility. Sepsis Event Note (ED) - Evaluation Sepsis Screening Result: No Definite Risk - Focused Exam Vital Signs: Vital Signs Temp Pulse Resp BP Pulse Ox 06/18/20 15:49 36.8 C 84 14 108/62 99
[2020-06-18 17:16] LABS: ANION GAP 13.8 mEq/L (7-13); CHLORIDE,CL 104 mmol/L (98-107); SODIUM,NA 140 mmol/L (136-145)
== END 2020-06-18 18:00 | disposition home or self-care (01) ==
LOC: DL.ED 15:31
DX: O03.4 Incomplete spontaneous abortion without complication (principal); Z72.0 Tobacco use; Z91.010 Allergy to peanuts
CPT/HCPCS: 36415; 76815; 76817; 80053; 80305-QW; 81001; 81025; 84702; 85025; 99284; 99284-25

== ENCOUNTER 2020-06-20 00:15 | Emergency (ER) | payer OTHER ==
[2020-06-20 01:08] VITALS: BP 123/75; PULSE 100
--- NOTE | 2020-06-20 01:18 | EDM.PDOC ---
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 Patient states she was last seen on June 18 in the ER for spotting. States she had had home tests that were positive. Patient states last menstrual period was in early April. States approximately 11 PM on June 19 she passed clots and tissue, states she has been through 2 pads today. No excessive or heavy bleeding. She states she brought the tissue and because in information she was given when she was discharged said that she should bring any tissue in for examination. Onset: Today, Sudden, Gradual - Related Data Allergies Allergy/AdvReac Type Severity Reaction Status Date / Time peanut Allergy Anaphylactic Verified 06/20/20 01:09 Shock Home Meds: Home Meds . 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: Other QUARTER FOLDER History: co pain to left pelvis and down left leg Psychiatric History: Reports: ADHD, Antisocial Behaviors, Bipolar, Emotional Problems, Mood Swings, Psych Hospitalization(s), Psychosis, Schizophrenia Social & Family History - Family History Family Medical History: No Pertinent Family History - Tobacco Use Tobacco Use Status *Q: Current Every Day Tobacco User Years of Tobacco use: 1 Packs/Tins Daily: 1 - Caffeine Use Caffeine Use: Reports: None - Recreational Drug Use Recreational Drug Use: No - Living Situation & Occupation Living situation: Reports: Other Occupation: Student ED ROS GENERAL - Review of Systems Review Of Systems: Comprehensive ROS is negative, except as noted in HPI. ED EXAM - Physical Exam Exam: See Below Exam Limited By: No Limitations General Appearance: Alert, WD/WN, No Apparent Distress Eye Exam: Bilateral Eye: EOMI, Normal Inspection Ears: Normal External Exam, Hearing Grossly Normal Nose: Normal Inspection Throat/Mouth: Normal Inspection, Normal Voice, No Airway Compromise Head: Atraumatic, Normocephalic Neck: Normal Inspection, Supple, Non-Tender, Full Range of Motion Respiratory/Chest: No Respiratory Distress, Lungs Clear, Normal Breath Sounds, No Accessory Muscle Use, Chest Non-Tender Cardiovascular: Normal Peripheral Pulses, Regular Rate, Rhythm, No Edema, No Gallop, No JVD, No Murmur, No Rub GI/Abdominal Exam: Normal Bowel Sounds, Soft, Non-Tender Rectal Exam: Deferred Back Exam: Normal Inspection, Full Range of Motion Extremities: Normal Inspection, Normal Range of Motion, Non-Tender, No Pedal Edema, Normal Capillary Refill Neurological: Alert, Oriented, CN II-XII Intact, Normal Cognition, Normal Gait, Normal Reflexes, No Motor/Sensory Deficits Psychiatric: Normal Affect, Normal Mood, Depressed Mood, Tearful Skin Exam: Warm, Dry, Intact, Normal Color, No Rash Lymphatic: No Adenopathy Course - Vital Signs Last Recorded V/S: Last Vital Signs Temp 97.7 F 06/20/20 01:02 Pulse 100 06/20/20 01:02 Resp 16 06/20/20 01:02 BP 123/75 06/20/20 01:02 Pulse Ox 98 06/20/20 01:02 - Orders/Labs/Meds Labs: Laboratory Tests 06/20/20 06/20/20 06/20/20 Range/Units 00:59 00:59 00:59 WBC 9.3 (5.0-10.0) 10^3/uL RBC 3.99 L (4.2-5.4) 10^6/uL Hgb 12.3 (12.0-16.0) g/dL Hct 36.4 L (37.0-47.0) % MCV 91.2 (80-100) fL MCH 30.8 (27.0-34.0) pg MCHC 33.8 (33.0-35.0) g/dL Plt Count 277 (150-450) 10^3/uL Neut % (Auto) 60.0 (42.2-75.2) % Lymph % (Auto) 29.8 (20.5-50.1) % [place] % (Auto) 9.2 H (2-8) % Eos % (Auto) 0.8 L (1.0-3.0) % Baso % (Auto) 0.2 (0.0-1.0) % Sodium 139 (136-145) mmol/L Potassium 3.9 (3.5-5.1) mmol/L Chloride 102 (98-107) mmol/L Carbon Dioxide 26 (21-32) mmol/L Anion Gap 14.9 H (7-13) mEq/L BUN 17 (7-18) mg/dL Creatinine 0.66 (0.55-1.02) mg/dL Est Cr Clr Drug Dosing 126.22 mL/min Estimated GFR (MDRD) > 60 BUN/Creatinine Ratio 25.8 (No establ ref range) Glucose 98 (74-99) mg/dL Calcium 9.1 (8.5-10.1) mg/dL Total Bilirubin 0.5 (0.2-1.0) mg/dL AST 15 (15-37) U/L ALT 20 (14-59) U/L Alkaline Phosphatase 62 (46-116) U/L Total Protein 7.0 (6.4-8.2) g/dL Albumin 3.7 (3.4-5.0) g/dL Globulin 3.3 Albumin/Globulin Ratio 1.1 HCG, Quant 541 H (0-6) mIU/mL Urine Color (YELLOW) Urine Appearance (CLEAR) Urine pH (5.0-9.0) Ur Specific [place] (1.005-1.030) Urine Protein (NEGATIVE) Urine Glucose (UA) (NEGATIVE) Urine Ketones (NEGATIVE) Urine Occult Blood (NEGATIVE) Urine Nitrite (NEGATIVE) Urine Bilirubin (NEGATIVE) Urine Urobilinogen (0.2-1.0) mg/dL Ur Leukocyte Esterase (NEGATIVE) Urine RBC /HPF Urine WBC (0-5/HPF) /HPF Ur Epithelial Cells (NOT SEEN) /HPF Amorphous Sediment (NOT SEEN) /HPF Urine Bacteria (0-FEW/HPF) /HPF Urine Mucus (NOT SEEN) /LPF Urine Other Urine HCG, Qual Urine Opiates Screen (NEGATIVE) Ur Oxycodone Screen (NEGATIVE) Urine Methadone Screen (NEGATIVE) Ur Barbiturates Screen (NEGATIVE) U Tricyclic Antidepress (NEGATIVE) Ur Phencyclidine Scrn (NEGATIVE) Ur Amphetamine Screen (NEGATIVE) U Methamphetamines Scrn (NEGATIVE) Urine MDMA Screen (NEGATIVE) U Benzodiazepines Scrn (NEGATIVE) Urine Cocaine Screen (NEGATIVE) U Marijuana (THC) Screen (NEGATIVE) 06/20/20 06/20/20 06/20/20 Range/Units 01:10 01:10 01:10 WBC (5.0-10.0) 10^3/uL RBC (4.2-5.4) 10^6/uL Hgb (12.0-16.0) g/dL Hct (37.0-47.0) % MCV (80-100) fL MCH (27.0-34.0) pg MCHC (33.0-35.0) g/dL Plt Count (150-450) 10^3/uL Neut % (Auto) (42.2-75.2) % Lymph % (Auto) (20.5-50.1) % [place] % (Auto) (2-8) % Eos % (Auto) (1.0-3.0) % Baso % (Auto) (0.0-1.0) % Sodium (136-145) mmol/L Potassium (3.5-5.1) mmol/L Chloride (98-107) mmol/L Carbon Dioxide (21-32) mmol/L Anion Gap (7-13) mEq/L BUN (7-18) mg/dL Creatinine (0.55-1.02) mg/dL Est Cr Clr Drug Dosing mL/min Estimated GFR (MDRD) BUN/Creatinine Ratio (No establ ref range) Glucose (74-99) mg/dL Calcium (8.5-10.1) mg/dL Total Bilirubin (0.2-1.0) mg/dL AST (15-37) U/L ALT (14-59) U/L Alkaline Phosphatase (46-116) U/L Total Protein (6.4-8.2) g/dL Albumin (3.4-5.0) g/dL Globulin Albumin/Globulin Ratio HCG, Quant (0-6) mIU/mL Urine Color Yellow (YELLOW) Urine Appearance Slightly cloudy (CLEAR) Urine pH 5.5 (5.0-9.0) Ur Specific [place] >= 1.030 (1.005-1.030) Urine Protein Negative (NEGATIVE) Urine Glucose (UA) Negative (NEGATIVE) Urine Ketones Negative (NEGATIVE) Urine Occult Blood Large H (NEGATIVE) Urine Nitrite Negative (NEGATIVE) Urine Bilirubin Negative (NEGATIVE) Urine Urobilinogen 0.2 (0.2-1.0) mg/dL Ur Leukocyte Esterase Negative (NEGATIVE) Urine RBC 40-50 H /HPF Urine WBC 0-5 (0-5/HPF) /HPF Ur Epithelial Cells Few (NOT SEEN) /HPF Amorphous Sediment Few (NOT SEEN) /HPF Urine Bacteria Rare (0-FEW/HPF) /HPF Urine Mucus Few H (NOT SEEN) /LPF Urine Other See note Urine HCG, Qual Positive Urine Opiates Screen Negative (NEGATIVE) Ur Oxycodone Screen Negative (NEGATIVE) Urine Methadone Screen Negative (NEGATIVE) Ur Barbiturates Screen Negative (NEGATIVE) U Tricyclic Antidepress Negative (NEGATIVE) Ur Phencyclidine Scrn Negative (NEGATIVE) Ur Amphetamine Screen Negative (NEGATIVE) U Methamphetamines Scrn Negative (NEGATIVE) Urine MDMA Screen Negative (NEGATIVE) U Benzodiazepines Scrn Negative (NEGATIVE) Urine Cocaine Screen Negative (NEGATIVE) U Marijuana (THC) Screen Negative (NEGATIVE) - Re-Assessments/Exams Free Text/Narrative Re-Assessment/Exam: 06/20/20 01:44 tissue was placed in a specimen container and given back to the patient. Departure - Departure Time of Disposition: 01:48 Disposition: Home, Self-Care 01 Condition: Good Clinical Impression: Complete - Discharge Information *PRESCRIPTION DRUG MONITORING PROGRAM REVIEWED*: No *COPY OF PRESCRIPTION DRUG MONITORING REPORT IN PATIENT KIRTI: No Instructions: Miscarriage, [id number] Forms: ED Department Discharge Additional Instructions: Return to the ER with any heavy bleeding Return to the ER with any fever or chills Follow-up with your primary care provider in the clinic May use Tylenol as directed for any cramping Sepsis Event Note (ED) - Evaluation Sepsis Screening Result: No Definite Risk - Focused Exam Vital Signs: Vital Signs Temp Pulse Resp BP Pulse Ox 06/20/20 01:02 97.7 F 100 16 123/75 98
[2020-06-20 01:24] LABS: ANION GAP 14.9 mEq/L (7-13); CHLORIDE,CL 102 mmol/L (98-107); SODIUM,NA 139 mmol/L (136-145)
== END 2020-06-20 01:52 | disposition home or self-care (01) ==
LOC: DL.ED 00:15
DX: O03.9 Complete or unspecified spontaneous abortion without complication (principal); Z91.010 Allergy to peanuts; Z72.0 Tobacco use
CPT/HCPCS: 36415; 80053; 80305-QW; 81001; 81025; 84702; 85025; 99283; 99284

== ENCOUNTER 2021-01-31 15:21 | Emergency (ER) | payer MEDICAID, MEDICARE, OTHER ==
[2021-01-31] MEDS ORDERED: Bacitracin Oint 1 GM U/D Packet TOP ONE (16:12)
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
[2021-01-31 16:23] VITALS: BP 124/60; PULSE 65
== END 2021-01-31 16:30 | disposition home or self-care (01) ==
LOC: DL.ED 15:21
DX: S40.811A Abrasion of right upper arm, initial encounter (principal); Z91.010 Allergy to peanuts; W22.09XA Striking against other stationary object, initial encounter; Y92.009 Unspecified place in unspecified non-institutional (private) residence as the place of occurrence of the external cause
CPT/HCPCS: 99282

== ENCOUNTER 2022-06-21 09:16 | Emergency (ER) | payer OTHER, MEDICAID ==
[2022-06-21 09:38] VITALS: BP 126/84; PULSE 98
== END 2022-06-21 09:48 | disposition home or self-care (01) ==
LOC: DL.ED 09:16
DX: M54.2 Cervicalgia (principal); Z91.010 Allergy to peanuts; V49.9XXA Car occupant (driver) (passenger) injured in unspecified traffic accident, initial encounter; Y92.410 Unspecified street and highway as the place of occurrence of the external cause
CPT/HCPCS: 99282; 99284

== ENCOUNTER 2023-03-14 14:03 | Inpatient (IN) | payer OTHER, MEDICAID ==
[2023-03-14] MEDS: Lactated Ringers 1,000 ML IV SCH ×2 (14:05→18:12)
[2023-03-14] MEDS ORDERED: Sodium Chloride 0.9% 10 ML Syringe FLUSH PRN ×2 (14:14→17:01)
[2023-03-14] MEDS ORDERED: Citric Acid/Sodium Citrate Solution 30 ML Cup PO ONE (14:14)
[2023-03-14] MEDS ORDERED: Oxytocin 10 Units/1 ML SDV IM PRN ×2 (14:14→17:01)
[2023-03-14] MEDS ORDERED: Methylergonovine 0.2 MG Tab PO PRN (14:14)
[2023-03-14] MEDS ORDERED: Tranexamic Acid 1,000 MG in Sodium Chloride 0.9% 100 ML IV PRN ×2 (14:14→17:01)
[2023-03-14] MEDS ORDERED: ceFAZolin 2 GM Vial IVPUSH ONE (14:14)
[2023-03-14] MEDS ORDERED: Carboprost Tromethamine 250 MCG/1 ML Amp IM PRN ×2 (14:14→17:01)
[2023-03-14] MEDS ORDERED: Oxytocin/Normal Saline 30 UNIT/500 ML BAG IV SCH (14:15)
[2023-03-14] MEDS ORDERED: Lactated Ringers 1,000 ML IV SCH (14:15)
[2023-03-14] MEDS ORDERED: Bupivacaine 0.25% 10 ML SDV ONE (14:18)
[2023-03-14] MEDS ORDERED: fentaNYL 100 MCG/2 ML SDV ONE (14:18)
[2023-03-14] MEDS ORDERED: Lidocaine 2% with EPINEPHrine 1:200,000 20 ML SDV ONE (14:29)
[2023-03-14 14:36] LABS: BASOPHILS PERCENT AUTO 0.2 % (0.0-1.0); EOSINOPHILS PERCENT AUTO 0.3 % (1.0-3.0); HEMATOCRIT 35.1 % (37.0-47.0); HEMOGLOBIN 11.8 g/dL (12.0-16.0); LYMPHOCYTES PERCENT AUTO 33.7 % (20.5-50.1); MEAN CORPUSCULAR HEMOGLOBIN 31.6 pg (27.0-34.0); MEAN CORPUSCULAR HGB CONC 33.6 g/dL (33.0-35.0); MEAN CORPUSCULAR VOLUME 94.1 fL (80-100); MONOCYTES PERCENT AUTO 9.5 % (2-8); NEUTROPHILS PERCENT AUTO 56.3 % (42.2-75.2); PLATELET COUNT,PLT 234 10^3/uL (150-450); RED BLOOD CELL COUNT 3.73 10^6/uL (4.2-5.4); WHITE BLOOD CELL COUNT,WBC 8.6 10^3/uL (5.0-10.0)
[2023-03-14] MEDS ORDERED: Phenylephrine HCl In 0.9% NaCl 1 MG/10 ML Syringe IVPUSH PRN (15:01)
[2023-03-14] MEDS ORDERED: ePHEDrine 50 MG/ML SDV IVPUSH PRN (15:01)
[2023-03-14] MEDS ORDERED: Ropivacaine 200 MG in Premix Bag 1 BAG EPIDUR SCH (15:15)
[2023-03-14] MEDS ORDERED: Zolpidem 5 MG Tab PO PRN (17:01)
[2023-03-14] MEDS ORDERED: Benzocaine/Menthol 20%-0.5% Spray 78 GM Cannister TOP PRN (17:01)
[2023-03-14] MEDS ORDERED: Ibuprofen 800 MG Tab PO PRN (17:01)
[2023-03-14] MEDS ORDERED: Simethicone 80 MG Tab.Chew PO PRN (17:01)
[2023-03-14] MEDS ORDERED: Misoprostol 400 MCG (4 X 100 MCG TAB) RECTAL PRN (17:01)
[2023-03-14] MEDS ORDERED: Acetaminophen 325 MG Tab PO PRN (17:01)
[2023-03-14] MEDS ORDERED: Sodium Chloride 0.9% 10 ML Syringe FLUSH SCH (21:00)
[2023-03-14] MEDS: Doxycycline Monohydrate 100 MG Cap PO SCH (22:08)
[2023-03-14] MEDS: Docusate Sodium 100 MG Cap PO PRN (22:12)
[2023-03-14] MEDS ORDERED: Enoxaparin 40 MG/0.4 ML Syringe SUBCUT SCH (23:00)
[2023-03-15] MEDS ORDERED: Prenatal Multivitamin with Calcium/Folic Acid/Iron Tab PO SCH (09:00)
[2023-03-15] MEDS: Docusate Sodium 100 MG Cap PO PRN (09:09)
[2023-03-15] MEDS: Doxycycline Monohydrate 100 MG Cap PO SCH ×2 (09:10→12:54)
[2023-03-15] MEDS ORDERED: Doxycycline Monohydrate 100 MG Cap ONE (18:49)
[2023-03-15 19:52] VITALS: BP 115/81; PULSE 106
== END 2023-03-15 19:43 | disposition home or self-care (01) | DRG 807 ==
LOC: DL.US 14:03 → DL.OB 14:05 → OBSVTOIN 16:52
PROVIDERS: ADMIT Obstetrics & Gynecology; ATTEND Obstetrics & Gynecology
PROC: 10E0XZZ Delivery of Products of Conception, External Approach (ICD-10-PCS; principal; 2023-03-14)
PROC: 10907ZC Drainage of Amniotic Fluid, Therapeutic from Products of Conception, Via Natural or Artificial Opening (ICD-10-PCS; 2023-03-14)
PROC: 3E0R3BZ Introduction of Anesthetic Agent into Spinal Canal, Percutaneous Approach (ICD-10-PCS; 2023-03-14)
PROC: 00HU33Z Insertion of Infusion Device into Spinal Canal, Percutaneous Approach (ICD-10-PCS; 2023-03-14)
DX: O98.813 Other maternal infectious and parasitic diseases complicating pregnancy, third trimester (principal); Z37.0 Single live birth; O99.284 Endocrine, nutritional and metabolic diseases complicating childbirth; E05.90 Thyrotoxicosis, unspecified without thyrotoxic crisis or storm; O69.81X0 Labor and delivery complicated by cord around neck, without compression, not applicable or unspecified; A56.8 Sexually transmitted chlamydial infection of other sites; Z3A.37 37 weeks gestation of pregnancy
CPT/HCPCS: 36415; 51702; 59025; 59409; 59412; 76815; 85025; 86850; 86900; 86901; A9270-GY; J1650; J2590; J2795; J3490; J7120